=== PATIENT | male | born 1940 | race Caucasian/White ===

== ENCOUNTER → 2020-01-02 | Outpatient (CLI) | payer MEDICARE, OTHER ==
[2020-01-02 10:29] LABS: ABSOLUTE EOSINOPHILS # (AUTO) 0.1 10^3/uL (0.0-0.6); ABSOLUTE MONOCYTES (AUTO) 0.4 10^3/uL (0.1-1.4); ABSOLUTE NEUT (AUTO) 4.6 10^3/uL (1.7-8.2); BASOPHILS % (AUTO) 0.6 % (0-2); EOSINOPHILS % (AUTO) 1.6 % (0-6); HEMATOCRIT 46.2 % (37.9-51.0); HEMOGLOBIN 16.2 g/dL (13.5-17.0); LYMPHOCYTES % (AUTO) 36.8 % (13-45); MEAN CORPUSCULAR HEMOGLOBIN 30.9 pg (27.0-33.4); MEAN CORPUSCULAR HGB CONC 35.1 g/dL (32.0-36.0); MEAN CORPUSCULAR VOLUME 88 fl (80-97); MONOCYTES % (AUTO) 4.6 % (3-13); PLATELET COUNT 191 10^3/uL (150-450); RED BLOOD COUNT 5.26 10^6/uL (4.35-5.55); RED CELL DISTRIBUTION WIDTH 13.9 % (11.5-14.0); SEGMENTED NEUTROPHILS % (AUTO) 56.4 % (42-78); TOTAL CELLS COUNTED % (AUTO) 100 %; WHITE BLOOD COUNT 8.2 10^3/uL (4.0-10.5)
[2020-01-02 10:51] LABS: ALBUMIN 4.6 g/dL (3.5-5.0); ALKALINE PHOSPHATASE 62 U/L (38-126); ANION GAP 9 (5-19); ASPARTATE AMINO TRANSFERASE 27 U/L (17-59); BILIRUBIN,DIRECT 0.1 mg/dL (0.0-0.4); BILIRUBIN,TOTAL 1.1 mg/dL (0.2-1.3); BLOOD UREA NITROGEN 18 mg/dL (7-20); CALCIUM 10.7 mg/dL (8.4-10.2); CARBON DIOXIDE 31 mmol/L (22-30); CHLORIDE 98 mmol/L (98-107); CHOLESTEROL 135.01 mg/dL (0-200); GLUCOSE 131 mg/dL (75-110); POTASSIUM 3.9 mmol/L (3.6-5.0); TOTAL PROTEIN 7.8 g/dL (6.3-8.2); TRIGLYCERIDES 86 mg/dL (<150)
[2020-01-02 11:02] LABS: DIRECT LDL 69 mg/dL (<100)
[2020-01-02 11:07] LABS: FREE T3 2.77 pg/mL (2.77-5.27); FREE T4 (FREE THYROXINE) 1.23 ng/dL (0.78-2.19)
[2020-01-02 11:21] LABS: THYROID STIMULATING HORMONE 5.48 uIU/mL (0.47-4.68)
== END ==
LOC: OD 09:31
PROVIDERS: ATTEND Specialist
DX: E78.49 Other hyperlipidemia (principal); R94.31 Abnormal electrocardiogram [ECG] [EKG]; Z79.899 Other long term (current) drug therapy; E03.9 Hypothyroidism, unspecified; R06.00 Dyspnea, unspecified; R42 Dizziness and giddiness; E11.22 Type 2 diabetes mellitus with diabetic chronic kidney disease; I12.9 Hypertensive chronic kidney disease with stage 1 through stage 4 chronic kidney disease, or unspecified chronic kidney disease; N18.3 Chronic kidney disease, stage 3 (moderate)
CPT/HCPCS: 36415; 80048; 80061; 80076; 83036; 84439; 84443; 84481; 85025